=== PATIENT | female | born 1980 | race Caucasian/White ===

== ENCOUNTER 2019-03-01 15:57 | Emergency (ER) | payer OTHER ==
[~2019-03-01] VITALS: Ht 160 cm; Wt 56.4 kg
[2019-03-01 16:21] VITALS: Ht 160 cm; Wt 56.4 kg
[2019-03-01] MEDS ORDERED: SOD CHLORIDE 0.9% 2,000 ML IV STA (16:42)
[2019-03-01] MEDS ORDERED: METOCLOPRAMIDE 10 MG INJ IV STA (16:42)
--- NOTE | 2019-03-01 18:28 | ERD ---
ER Documentation Chief Complaint Chief Complaint lower abdominal pain and sob - 6 week -LMP 12/31/18 HPI 39-year-old female presents with vomiting for the last 2 weeks. She is approximately 6 weeks by dates. She is taking Reglan at home which provides some relief. She is recently prescribed Diclegis as well by her OB. She denies bleeding, fevers. She has mild lower abdominal cramping. She had a normal ultrasound this weekend by report. She is a G3 para 2. She has mild sensation of shortness of breath but denies syncope, calf swelling, hemoptysis. ROS All systems reviewed and are negative except as per history of present illness. Allergies Allergies: Coded Allergies: NSAIDS (Non-Steroidal Anti-Inflamma (Verified Allergy, Unknown, rashes, 03/01/19) sulfamethoxazole (Verified Allergy, Unknown, rashes, 03/01/19) trimethoprim (Verified Allergy, Unknown, rashes, 03/01/19) Uncoded Allergies: DOLFENAL (Allergy, Unknown, rashes, 03/01/19) PMhx/Soc Medical and Surgical Hx: pt denies Medical Hx, pt denies Surgical Hx Hx Alcohol Use: No Hx Substance Use: No Hx Tobacco Use: No Smoking Status: Never smoker FmHx Family History: No diabetes, No coronary disease, No other Physical Exam Vitals Vital Signs Date Temp Pulse Resp B/P (MAP) Pulse Ox O2 O2 Flow FiO2 Time Delivery Rate 03/01/19 98.7 99 10 131/61 100 16:21 (84) Physical Exam Const: No acute distress Head: Atraumatic Eyes: Normal Conjunctiva ENT: Normal External Ears, Nose and Mouth. Neck: Full range of motion. No meningismus. Resp: Clear to auscultation bilaterally Cardio: Regular rate and rhythm, no murmurs Abd: Soft, non tender, non distended. Normal bowel sounds Skin: No petechiae or rashes Back: No midline or flank tenderness Ext: No cyanosis, or edema. No calf swelling or Homans sign. Neur: Awake and alert Psych: Normal Mood and Affect Result Diagram: 03/01/19 1704 03/01/19 1704 Results 24 hrs Laboratory Tests Test 03/01/19 17:04 03/01/19 17:49 White Blood Count 11.6 10^3/ul Red Blood Count 3.78 10^6/ul Hemoglobin 11.3 g/dl Hematocrit 33.2 % Mean Corpuscular Volume 87.8 fl Mean Corpuscular Hemoglobin 29.9 pg Mean Corpuscular Hemoglobin Concent 34.0 g/dl Red Cell Distribution Width 12.0 % Platelet Count 326 10^3/UL Mean Platelet Volume 9.4 fl Immature Granulocytes % 0.300 % Neutrophils % 60.8 % Lymphocytes % 30.3 % Monocytes % 7.2 % Eosinophils % 1.0 % Basophils % 0.4 % Nucleated Red Blood Cells % 0.0 /100WBC Immature Granulocytes # 0.040 10^3/ul Neutrophils # 7.1 10^3/ul Lymphocytes # 3.5 10^3/ul Monocytes # 0.8 10^3/ul Eosinophils # 0.1 10^3/ul Basophils # 0.1 10^3/ul Nucleated Red Blood Cells # 0.0 10^3/ul Sodium Level 140 mmol/L Potassium Level 3.6 mmol/L Chloride Level 104 mmol/L Carbon Dioxide Level 26 mmol/L Anion Gap 10 Blood Urea Nitrogen 10 mg/dl Creatinine 0.65 mg/dl Est Glomerular Filtrat Rate mL/min > 60 mL/min Glucose Level 99 mg/dl Calcium Level 10.3 mg/dl Total Bilirubin 0.4 mg/dl Direct Bilirubin 0.00 mg/dl Indirect Bilirubin 0.4 mg/dl Aspartate Amino Transf (AST/SGOT) 19 IU/L Alanine Aminotransferase (ALT/SGPT) 21 IU/L Alkaline Phosphatase 81 IU/L Total Protein 8.1 g/dl Albumin 4.7 g/dl Globulin 3.40 g/dl Albumin/Globulin Ratio 1.38 Lipase 121 U/L Urine Color YELLOW Urine Clarity CLOUDY Urine pH 5.0 Urine Specific [place] 1.016 Urine Ketones TRACE mg/dL Urine Nitrite NEGATIVE mg/dL Urine Bilirubin NEGATIVE mg/dL Urine Urobilinogen NEGATIVE mg/dL Urine Leukocyte Esterase 3+ Tata/ul Urine Microscopic RBC 10 /HPF Urine Microscopic WBC 22 /HPF Urine Squamous Epithelial Cells MODERATE /HPF Urine Bacteria FEW /HPF Urine Hemoglobin NEGATIVE mg/dL Urine Glucose 3+ mg/dL Urine Total Protein NEGATIVE mg/dl Current Medications Medications Dose Sig/Shannon Start Time Status Last (Trade) Ordered Route PRN Stop Time Admin Dose Reason Admin Sodium 2,000 ml @ Q2H STAT 6/5/19 6/5/19 Chloride 1,000 mls/hr IV 16:42 03/01/19 17:08 18:41 10 mg ONCE STAT 03/01/19 DC 03/01/19 Metoclopramid IV 16:42 03/01/19 17:08 e HCl 16:43 (Reglan) Cephalexin 500 mg ONCE ONCE 03/01/19 (Keflex) PO 18:30 03/01/19 18:31 Procedures/MDM CBC shows minimal leukocytosis of 11.6. Mild anemia. Patient was given 2 L normal saline as IV. There is no signs of significant dehydration on CMP. Urin e shows leukocyte esterase and white blood cells. There is glucose in urine but blood glucose normal. Patient was given Keflex 500 mg by mouth. She was given Reglan 10 mg IV. She no vomiting during the ER course is well-appearing with a benign abdomen on serial exam. Ultrasound deferred given minimal pain and normal ultrasound by report this week and without bleeding. Patient has signs and symptoms of hyperemesis. She has no signs of significant dehydration, significant abdominal pain. She does have signs of UTI with moderate epithelial cells. May be dirty catch but will treat given the findings with Keflex, continuation of diclegis, primary care follow-up and return precautions. She has no signs or symptoms to suggest DVT, PE, ectopic by history. The patient was stable with no new complaints during the ER course. Clinically, there is no current evidence to suggest meningitis, sepsis, acute abdomen, pneumonia, stroke, acute coronary syndrome, pulmonary embolism, aortic dissection or any other emergent condition appearing to require further evaluation or hospitalization. Patient counseled regarding my diagnostic impression and care plan. Prior to discharge all questions answered. Pt agrees with treatment plan and understands strict return precautions. Pt is instructed to follow up with primary care provider within 24-48 hours. Precautionary instructions provided including instructions to return to the ER if not improving or for any worsening or changing symptoms or concerns. Disclaimer: Inadvertent spelling and grammatical errors are likely due to EHR /dictation software use and do not reflect on the overall quality of patient care. Also, please note that the electronic time recorded on this note does not necessarily reflect the actual time of the patient encounter. Departure Diagnosis: Primary Impression: Vomiting affecting , antepartum Additional Impression: Vomiting Vomiting type: unspecified Vomiting Intractability: unspecified Nausea presence: unspecified Qualified Codes: R11.10 - Vomiting, unspecified Condition: Stable Patient Instructions: Vomiting (6Y-Adult) Additional Instructions: Continue current medications. Recheck for vomiting despite treatment, bleeding, fevers, new worsening symptoms. GENESIS SHANKAR MD Mar 01, 2019 18:28
[2019-03-01] MEDS ORDERED: CEPH-443 PO (18:29)
[2019-03-01] MEDS ORDERED: CEPHALEXIN 500 MG CAP PO ONE (18:30)
[2019-03-01 18:48] VITALS: BP 114/61; PULSE 83; RESP 16
== END 2019-03-01 18:50 | disposition home or self-care (01) ==
LOC: FTE 15:57
DX: O21.9 Vomiting of pregnancy, unspecified (principal); Z3A.01 Less than 8 weeks gestation of pregnancy
CPT/HCPCS: 36415; 80053; 81001; 83690; 85025; 96361; 96374; 99284; J2765; J7030